=== PATIENT | male | born 1930 | race Caucasian/White ===

== ENCOUNTER 2017-01-07 15:02 | Observation (INO) | payer MEDICARE ==
[2017-01-07 16:39] LABS: Hematocrit 40 % (42-52); Hemoglobin 13.3 g/dl (14.0-18.0); Mean Corpuscular HGB Conc 33 g/dl (31-36); Mean Corpuscular Hemoglobin 32 pg (27-31); Mean Corpuscular Volume 95 fL (80-94); Mean Platelet Volume 8 um3 (7.4-10.4); Red Blood Count 4.19 10^6/ul (4.0-5.4); Red Cell Distribution Width 13 % (10.5-15); White Blood Count 6.6 10^3/ul (3.5-10.8)
[2017-01-07 17:02] LABS: Albumin 3.9 g/dL (3.2-5.2); C Reactive Protein 3.66 mg/L (< 5.00); Calcium 9.1 mg/dL (8.6-10.3); EGFR African American 73.3 (>60); Globulin 3.4 g/dL (2-4); Magnesium 2.1 mg/dL (1.9-2.7); Potassium 3.6 mmol/L (3.5-5.0); Total Bilirubin 0.6 mg/dL (0.2-1.0); Total Protein 7.3 g/dL (6.4-8.9)
[2017-01-07 17:04] LABS: Troponin I 0.01 ng/mL (<0.04)
--- NOTE | 2017-01-07 17:08 | RAD ---
INDICATION: Back pain and weakness in an 86-year-old COMPARISON: None TECHNIQUE: Noncontrast axial source images was performed from the thoracolumbar junction to the sacrum. Coronal and and sagittal reformatted images were generated. FINDINGS: Vertebrae: There is no fracture or acute focal bony lesion. 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 Alignment: Lumbar spine straightening. Central Canal/Disc spaces: T12-L1 and L1-L2 are unremarkable. There is prominent sclerosis with disc space narrowing and vacuum disc phenomena at L2-L3. The degenerative changes in combination with circumferential bulging the disc leads to moderate to severe central canal stenosis. There is moderate bilateral foraminal narrowing. L3-L4 shows degenerative disc disease with mild canal and foraminal narrowing. L4-L5 shows degenerative disc disease with a mild decrease in side to side dimension of the canal and mild foraminal narrowing. L5-S1 shows advanced degenerative disc disease but no significant canal or foraminal compromise. Soft tissues: The paravertebral soft tissues are normal. 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
--- NOTE | 2017-01-07 17:12 | RAD ---
INDICATION: Weakness COMPARISON: Chest x-ray August 27, 2014; CT chest November 18, 2016 TECHNIQUE: An AP seated portable view obtained at 1701 hours is submitted. FINDINGS: Bones/Soft Tissues: There are no acute bony findings. Cardiomediastinal: The cardiomediastinal silhouette is normal. Lungs: There are no infiltrates. Pleura: There are no pleural effusions. There are left-sided pleural calcifications better identified on earlier CT imaging Other: None IMPRESSION: NO ACTIVE DISEASE.
[2017-01-07] MEDS: NS 0.9% 1000 ML* 1,000 ML IV SCH (17:15)
[2017-01-07 17:19] LABS: TSH (Thyroid Stimulating Horm) 8.97 mcIU/mL (0.34-5.60)
[2017-01-07 17:36] LABS: Urine Bilirubin Negative (Negative); Urine Glucose Negative (Negative); Urine Nitrite Negative (Negative)
--- NOTE | 2017-01-07 17:54 | RAD ---
INDICATION: Weakness COMPARISON: None TECHNIQUE: Noncontrast axial source images were acquired from the skull base to the vertex. FINDINGS: Ventricles/sulci: There is cortical atrophy with compensatory dilatation of the CSF spaces. Brain parenchyma: There is periventricular and subcortical white matter change compatible with chronic ischemia. Intracranial hemorrhage:None. Extra-axial spaces: There are no abnormal extra axial fluid collections or evidence of extra-axial mass. Calvarium: There is no calvarial fracture or other calvarial abnormality. Scalp: There is no evidence of scalp or extracalvarial soft tissue abnormality. Paranasal sinuses/mastoid: There is focal mucosal thickening involving the right maxillary antrum. There is a short air-fluid level left maxillary antrum. There is mild sphenoid sinusitis. Other: None. IMPRESSION: CORTICAL ATROPHY WITH CHRONIC MICROVASCULAR ISCHEMIC CHANGES. NO ACUTE FINDINGS. SINUSITIS.
--- NOTE | 2017-01-07 19:26 | ED ---
Deep Warren Billy, scribed for Tuan Mujica MD on 01/07/17 at 1736 . 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 He describes his condition as his legs "not working and feeling like jello." His symptoms have since resolved. He denies any dizziness, chest pain, SOB, leg pain, back pain, hematochezia, or changes to his arm strength. No similar prior episodes. He has been recovering from a recent head cold. No falls or traumas today. No significant chronic lower back pain. 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 Negative: Dizziness, Pain, GI Blood Loss, Chest Pain, Shortness of Breath - Additional Pertinent History Primary Care Physician: [id number] - Allergy/Home Medications Allergies/Adverse Reactions: Allergies Allergy/AdvReac Type Severity Reaction Status Date / Time Penicillins [PCN] Allergy Severe Hives Verified 01/07/17 15:03 Home Medications: Home Medications Cyanocobalamin TAB* [Vitamin B12 TAB*] 1,000 mcg PO DAILY 01/07/17 [History Confirmed 01/07/17] PMH/Surg Hx/FS Hx/Imm Hx Cardiovascular History: Reports: Hx Hypertension GI History: Reports: Hx Gastroesophageal Reflux Disease - ON DAILY MEDS Musculoskeletal History: Reports: Hx Arthritis - right knee Sensory History: Reports: Hx Contacts or Glasses - GLASSES, Hx Hearing Aid - LEFT EAR Opthamlomology History: Reports: Hx Contacts or Glasses - GLASSES - Cancer History Cancer Type, Location and 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 HERNIA REPAIRS [id number] BLADDER CANCER KELAYRESLEFT TOTAL KNEE Hx Anesthesia Reactions: No Infectious Disease History: No Infectious Disease History: Denies: Traveled Outside the [place] in Last 30 Days - Family History Family History: negative for malignant hyperthermia, negative for reaction to anesthesia - Social History Alcohol Use: Occasionally Alcohol Amount: 1-2 DRINKS/MONTH Substance Use Type: Reports: None Hx Tobacco Use: No Smoking Status (MU): Former Smoker Type: Cigarettes Amount Used/How Often: 4PPD 40+ YRS Have You Smoked in the Last Year: No Review of Systems Negative: Chest Pain Negative: Shortness Of Breath Positive: Weakness All Other Systems Reviewed And Are Negative: Yes Physical Exam Triage Information Reviewed: Yes Vital Signs On Initial Exam: Initial Vitals Temp Pulse Resp BP Pulse Ox 97.6 F 88 20 141/70 97 01/07/17 15:03 01/07/17 15:03 01/07/17 15:03 01/07/17 15:03 01/07/17 15:03 Vital Signs Reviewed: Yes Appearance: Positive: Well-Appearing, No Pain Distress Skin: Positive: Warm, Skin Color Reflects Adequate Perfusion, Dry Head/Face: Positive: Normal Head/Face Inspection Eyes: Positive: EOMI, DAXA ENT: Positive: Normal ENT inspection Neck: Positive: Supple, Nontender Respiratory/Lung Sounds: Positive: Clear to Auscultation, Breath Sounds Present Cardiovascular: Positive: RRR Abdomen Description: Positive: Nontender, Soft Bowel Sounds: Positive: Present Musculoskeletal: Positive: Strength/ROM Intact Neurological: Positive: Normal, Sensory/Motor Intact, Alert, Oriented to Person Place, Time Psychiatric: Positive: Normal, Affect/Mood Appropriate - Harshaw Coma Scale Coma Scale Total: 15 Diagnostics - Vital Signs Vital Signs Temp Pulse Resp BP Pulse Ox 01/07/17 17:01 82 94 01/07/17 17:00 130/84 01/07/17 16:00 83 122/78 92 01/07/17 15:54 91 124/82 92 01/07/17 15:48 87 92 01/07/17 15:03 97.6 F 88 20 141/70 97 - Laboratory Lab Results: Lab Results 01/07/17 01/07/17 01/07/17 Range/Units 16:30 16:30 16:30 WBC 6.6 (3.5-10.8) 10^3/ul RBC 4.19 (4.0-5.4) 10^6/ul Hgb 13.3 L (14.0-18.0) g/dl Hct 40 L (42-52) % MCV 95 H (80-94) fL MCH 32 H (27-31) pg MCHC 33 (31-36) g/dl RDW 13 (10.5-15) % Plt Count 171 (150-450) 10^3/ul MPV 8 (7.4-10.4) um3 Neut % (Auto) 54.1 (38-83) % Lymph % (Auto) 34.8 (25-47) % [place] % (Auto) 7.9 (1-9) % Eos % (Auto) 2.6 (0-6) % Baso % (Auto) 0.6 (0-2) % Absolute Neuts (auto) 3.6 (1.5-7.7) 10^3/ul Absolute Lymphs (auto) 2.3 (1.0-4.8) 10^3/ul Absolute Monos (auto) 0.5 (0-0.8) 10^3/ul Absolute Eos (auto) 0.2 (0-0.6) 10^3/ul Absolute Basos (auto) 0 (0-0.2) 10^3/ul Absolute Nucleated RBC 0.01 10^3/ul Nucleated RBC % 0.1 INR (Anticoag Therapy) 0.94 (0.89-1.11) APTT 26.8 (26.0-36.3) seconds Sodium 139 (133-145) mmol/L Potassium 3.6 (3.5-5.0) mmol/L Chloride 104 (101-111) mmol/L Carbon Dioxide 27 (22-32) mmol/L Anion Gap 8 (2-11) mmol/L BUN 29 H (6-24) mg/dL Creatinine 1.21 H (0.67-1.17) mg/dL Est GFR ( Amer) 73.3 (>60) Est GFR (Non-Af Amer) 57.0 (>60) BUN/Creatinine Ratio 24.0 H (8-20) Glucose 97 (70-100) mg/dL Lactic Acid (0.5-2.0) mmol/L Calcium 9.1 (8.6-10.3) mg/dL Magnesium 2.1 (1.9-2.7) mg/dL Total Bilirubin 0.60 (0.2-1.0) mg/dL AST 18 (13-39) U/L ALT 13 (7-52) U/L Alkaline Phosphatase 39 (34-104) U/L Total Creatine Kinase 75 (10-223) U/L CK-MB (CK-2) 2.7 (0.6-6.3) ng/mL Troponin I 0.01 (<0.04) ng/mL C-Reactive Protein 3.66 (< 5.00) mg/L Total Protein 7.3 (6.4-8.9) g/dL Albumin 3.9 (3.2-5.2) g/dL Globulin 3.4 (2-4) g/dL Albumin/Globulin Ratio 1.1 (1-3) Lipase 17 (11.0-82.0) U/L TSH 8.97 H (0.34-5.60) mcIU/mL 01/07/17 Range/Units 16:30 WBC (3.5-10.8) 10^3/ul RBC (4.0-5.4) 10^6/ul Hgb (14.0-18.0) g/dl Hct (42-52) % MCV (80-94) fL MCH (27-31) pg MCHC (31-36) g/dl RDW (10.5-15) % Plt Count (150-450) 10^3/ul MPV (7.4-10.4) um3 Neut % (Auto) (38-83) % Lymph % (Auto) (25-47) % [place] % (Auto) (1-9) % Eos % (Auto) (0-6) % Baso % (Auto) (0-2) % Absolute Neuts (auto) (1.5-7.7) 10^3/ul Absolute Lymphs (auto) (1.0-4.8) 10^3/ul Absolute Monos (auto) (0-0.8) 10^3/ul Absolute Eos (auto) (0-0.6) 10^3/ul Absolute Basos (auto) (0-0.2) 10^3/ul Absolute Nucleated RBC 10^3/ul Nucleated RBC % INR (Anticoag Therapy) (0.89-1.11) APTT (26.0-36.3) seconds Sodium (133-145) mmol/L Potassium (3.5-5.0) mmol/L Chloride (101-111) mmol/L Carbon Dioxide (22-32) mmol/L Anion Gap (2-11) mmol/L BUN (6-24) mg/dL Creatinine (0.67-1.17) mg/dL Est GFR ( Amer) (>60) Est GFR (Non-Af Amer) (>60) BUN/Creatinine Ratio (8-20) Glucose (70-100) mg/dL Lactic Acid 1.2 (0.5-2.0) mmol/L Calcium (8.6-10.3) mg/dL Magnesium (1.9-2.7) mg/dL Total Bilirubin (0.2-1.0) mg/dL AST (13-39) U/L ALT (7-52) U/L Alkaline Phosphatase (34-104) U/L Total Creatine Kinase (10-223) U/L CK-MB (CK-2) (0.6-6.3) ng/mL Troponin I (<0.04) ng/mL C-Reactive Protein (< 5.00) mg/L Total Protein (6.4-8.9) g/dL Albumin (3.2-5.2) g/dL Globulin (2-4) g/dL Albumin/Globulin Ratio (1-3) Lipase (11.0-82.0) U/L TSH (0.34-5.60) mcIU/mL Result Diagrams: 01/07/17 16:30 01/07/17 16:30 Lab Statement: Any lab studies that have been ordered have been reviewed, and results considered in the medical decision making process. 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 NO ACUTE FINDINGS. SINUSITIS. Course/Dx - Course Assessment/Plan: DR MAYERS, NEUROLOGY, SAW PATIENT IN ED. ADMIT HOSPITALIST STABLE. - Diagnoses Provider Diagnoses: Weakness - Physician Notifications Discussed Care of Patient With: 17:32 - spoke with Dr. Mayers (neurologist). Indicated that patient will require MRI with and without contrast. Discharge - Discharge Plan Condition: Stable Disposition: [facility] Referrals: Deja West MD [Primary Care Provider] - The documentation as recorded by the [email or web address] isbell Billy accurately reflects the service I personally performed and the decisions made by me, Tuan Mujica MD.
[2017-01-07 20:12] LABS: Free T4 0.69 ng/dL (0.61-1.12)
[2017-01-07 20:16] LABS: Total T3 1.09 ng/mL (0.87-1.78)
--- NOTE | 2017-01-07 20:19 | HP ---
H&P (Free Text) History and Physical: PCP: Karie West MD Date/Time of Evaluation: 01/07/20171944 CC: gait problem HPI: Mr Monzon is a highly functional 86YO male who reports awakening in his usual health this AM. He spent much of the morning and early afternoon cooking for his family. He decided to take a break around 1600 by lying on his stomach and reading. About 1630 he received a phone call from a friend. 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 He had to hold onto his dresser and bed to keep from falling. His friend's is a retired nurse and advised him to come to the ED for evaluation. Mr Monzon denies focal numbness/tingling, change in speech/ vision/swallow, loss of bowel/bladder, chest pain, F/C/D, or other issues. He is recovering from an upper respiratory infection present for the past week manifested mainly by productive cough and rhinorrhoea. ED evaluation reveals stable vitals and reasonably normal lab values. Radiologic work up reveals CT L-spine WO showing mod-severe L2-[address] Riana MD neurology consulted in the ED and recommends observation for MRI C/T/L spine & further lab work up. PMedHx HTN HLD GERD restless leg syndrome Allergies Penicillins [PCN] Allergy (Severe, Verified 01/07/17 15:03) Hives Ambulatory Orders Pantoprazole TAB (NF) [Protonix TAB (NF)] 40 mg PO DAILY 05/08/13 Simvastatin TAB(NF) [Zocor(NF)] 20 mg PO BEDTIME 05/08/13 Ferrous Sulfate TAB* 325 mg PO BID 05/18/15 Ibuprofen TAB* [Advil TAB*] 400 mg PO Q6H PRN 05/18/15 Lisinopril/HCTZ 20/12.5(NF) [Zestoretic 20/12.5(NF)] 0.5 tab PO DAILY 05/18/15 rOPINIRole TAB* [Requip TAB*] 1 - 2 tab PO BEDTIME 05/18/15 Ketoconazole 2 % CREAM (NF) [Nizoral 2% CREAM (NF)] 1 applic TOPICAL BID Lidocaine 5% OINT* [Xylocaine 5% Oint*] 1 applic TOPICAL BEDTIME 10/03/16 Cyanocobalamin TAB* [Vitamin B12 TAB*] 1,000 mcg PO DAILY 01/07/17 PSurgHx B TKA SocHx: former smoker having quit >25years ago with >50PYHX, minimal alcohol, no recreational drugs; , lives alone; full code status FamHx: Mother & Father passed at a younger age than he is, but he is uncertain as to their medical conditions. ROS: as above, otherwise reviewed and all were negative Constitutional: NAD, normally developed, well-nourished elderly white male vitals: Vital Signs Temp 36.4 C 01/07/17 15:03 Pulse 84 01/07/17 18:30 Resp 20 01/07/17 15:03 BP 105/61 01/07/17 18:30 Pulse Ox 96 01/07/17 18:30 Intake & Output 01/06/17 01/07/17 01/07/17 23:59 11:59 23:59 Weight 80.739 kg HEENM: atraumatic; sclera/conjunctiva: non-icteric/clear; hearing: [place] hearing aides w/ mild to moderate difficulty; oropharynx: clear, mucosa moist Neck: soft tissue: non-tender; thyroid: normal Pulmonary: clear to auscultation bilaterally, good aeration, no accessory muscle use CV: RR/RR, normal S1S2, no carotid bruit, no jugular venous distention, 2+ B DP/ PT, no edema Abdominal: soft, non-distended, non-tender, no rebound/guarding/rigidity, normoactive bowel sounds, no hepatosplenomegaly or masses, no costovertebral angle tenderness Musculoskeletal: general: grossly intact; gait: unsteady Integumental: normal appearance and texture for age of exposed skin Neurological motor LLE: 4/5 proximally & distally RLE: 4/5 proximally & distally sensory crude touch: intact BLE proprioception: intact BLE Otherwise exam deferred to neurology. Psychiatric orientation: AA&O to PPS affect: calm mood: pleasant eye contact: good content: reliable responses: timely insight: good Testing: Lab Results 01/07/17 01/07/17 01/07/17 Range/Units 16:30 16:30 16:30 WBC 6.6 (3.5-10.8) 10^3/ul RBC 4.19 (4.0-5.4) 10^6/ul Hgb 13.3 L (14.0-18.0) g/dl Hct 40 L (42-52) % MCV 95 H (80-94) fL MCH 32 H (27-31) pg MCHC 33 (31-36) g/dl RDW 13 (10.5-15) % Plt Count 171 (150-450) 10^3/ul MPV 8 (7.4-10.4) um3 Neut % (Auto) 54.1 (38-83) % Lymph % (Auto) 34.8 (25-47) % [place] % (Auto) 7.9 (1-9) % Eos % (Auto) 2.6 (0-6) % Baso % (Auto) 0.6 (0-2) % Absolute Neuts (auto) 3.6 (1.5-7.7) 10^3/ul Absolute Lymphs (auto) 2.3 (1.0-4.8) 10^3/ul Absolute Monos (auto) 0.5 (0-0.8) 10^3/ul Absolute Eos (auto) 0.2 (0-0.6) 10^3/ul Absolute Basos (auto) 0 (0-0.2) 10^3/ul Absolute Nucleated RBC 0.01 10^3/ul Nucleated RBC % 0.1 INR (Anticoag Therapy) 0.94 (0.89-1.11) APTT 26.8 (26.0-36.3) seconds Sodium 139 (133-145) mmol/L Potassium 3.6 (3.5-5.0) mmol/L Chloride 104 (101-111) mmol/L Carbon Dioxide 27 (22-32) mmol/L Anion Gap 8 (2-11) mmol/L BUN 29 H (6-24) mg/dL Creatinine 1.21 H (0.67-1.17) mg/dL Est GFR ( Amer) 73.3 (>60) Est GFR (Non-Af Amer) 57.0 (>60) BUN/Creatinine Ratio 24.0 H (8-20) Glucose 97 (70-100) mg/dL Lactic Acid (0.5-2.0) mmol/L Calcium 9.1 (8.6-10.3) mg/dL Magnesium 2.1 (1.9-2.7) mg/dL Total Bilirubin 0.60 (0.2-1.0) mg/dL AST 18 (13-39) U/L ALT 13 (7-52) U/L Alkaline Phosphatase 39 (34-104) U/L Total Creatine Kinase 75 (10-223) U/L CK-MB (CK-2) 2.7 (0.6-6.3) ng/mL Troponin I 0.01 (<0.04) ng/mL C-Reactive Protein 3.66 (< 5.00) mg/L Total Protein 7.3 (6.4-8.9) g/dL Albumin 3.9 (3.2-5.2) g/dL Globulin 3.4 (2-4) g/dL Albumin/Globulin Ratio 1.1 (1-3) Lipase 17 (11.0-82.0) U/L Vitamin B12 509 (180-914) pg/mL Folate Pending TSH 8.97 H (0.34-5.60) mcIU/mL Free T4 0.69 (0.61-1.12) ng/dL Total T3 1.09 (0.87-1.78) ng/mL Urine Color Urine Appearance Urine pH (5-9) Ur Specific [place] (1.010-1.030) Urine Protein (Negative) Urine Ketones (Negative) Urine Blood (Negative) Urine Nitrate (Negative) Urine Bilirubin (Negative) Urine Urobilinogen (Negative) Ur Leukocyte Esterase (Negative) Urine Glucose (Negative) 01/07/17 01/07/17 Range/Units 16:30 17:20 WBC (3.5-10.8) 10^3/ul RBC (4.0-5.4) 10^6/ul Hgb (14.0-18.0) g/dl Hct (42-52) % MCV (80-94) fL MCH (27-31) pg MCHC (31-36) g/dl RDW (10.5-15) % Plt Count (150-450) 10^3/ul MPV (7.4-10.4) um3 Neut % (Auto) (38-83) % Lymph % (Auto) (25-47) % [place] % (Auto) (1-9) % Eos % (Auto) (0-6) % Baso % (Auto) (0-2) % Absolute Neuts (auto) (1.5-7.7) 10^3/ul Absolute Lymphs (auto) (1.0-4.8) 10^3/ul Absolute Monos (auto) (0-0.8) 10^3/ul Absolute Eos (auto) (0-0.6) 10^3/ul Absolute Basos (auto) (0-0.2) 10^3/ul Absolute Nucleated RBC 10^3/ul Nucleated RBC % INR (Anticoag Therapy) (0.89-1.11) APTT (26.0-36.3) seconds Sodium (133-145) mmol/L Potassium (3.5-5.0) mmol/L Chloride (101-111) mmol/L Carbon Dioxide (22-32) mmol/L Anion Gap (2-11) mmol/L BUN (6-24) mg/dL Creatinine (0.67-1.17) mg/dL Est GFR ( Amer) (>60) Est GFR (Non-Af Amer) (>60) BUN/Creatinine Ratio (8-20) Glucose (70-100) mg/dL Lactic Acid 1.2 (0.5-2.0) mmol/L Calcium (8.6-10.3) mg/dL Magnesium (1.9-2.7) mg/dL Total Bilirubin (0.2-1.0) mg/dL AST (13-39) U/L ALT (7-52) U/L Alkaline Phosphatase (34-104) U/L Total Creatine Kinase (10-223) U/L CK-MB (CK-2) (0.6-6.3) ng/mL Troponin I (<0.04) ng/mL C-Reactive Protein (< 5.00) mg/L Total Protein (6.4-8.9) g/dL Albumin (3.2-5.2) g/dL Globulin (2-4) g/dL Albumin/Globulin Ratio (1-3) Lipase (11.0-82.0) U/L Vitamin B12 (180-914) pg/mL Folate TSH (0.34-5.60) mcIU/mL Free T4 (0.61-1.12) ng/dL Total T3 (0.87-1.78) ng/mL Urine Color Yellow Urine Appearance Clear Urine pH 5.0 (5-9) Ur Specific [place] 1.026 (1.010-1.030) Urine Protein Negative (Negative) Urine Ketones Negative (Negative) Urine Blood Negative (Negative) Urine Nitrate Negative (Negative) Urine Bilirubin Negative (Negative) Urine Urobilinogen Negative (Negative) Ur Leukocyte Esterase Negative (Negative) Urine Glucose Negative (Negative) CXR, personally reviewed: IMPRESSION: NO ACTIVE DISEASE. CT brain WO, personally reviewed: IMPRESSION: CORTICAL ATROPHY WITH CHRONIC MICROVASCULAR ISCHEMIC CHANGES. NO ACUTE FINDINGS. SINUSITIS. 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 Impression: 86M presenting with acute gait instability DIAGNOSIS & PLAN Primary acute gait abnormality, concern for neurologic process : Sarbjit Mayers MD neurology consulted in ED, will follow, assistance appreciated : MRI C/T/L spine in AM : check B12, folate, TSH, syphilis IgG, total CK : supportive care Secondary HTN : continue lisinopril/HCTZ HLD : continue simvastatin GERD : continue pantoprazole restless leg syndrome : continue ropinirole Admission Rational: observation for acute gait abnormality, suspect neurologic process DVTp: heparin SQ Code Status: full HCP: sonTrevor
[2017-01-07 20:35] LABS: Folate 10.54 ng/mL (>3.99)
[2017-01-07] MEDS ORDERED: rOPINIRole TAB* 1 MG PO SCH (21:00)
[2017-01-07] MEDS ORDERED: Atorvastatin* 10 MG TAB PO SCH (21:00)
--- NOTE | 2017-01-07 21:50 | CONS ---
CC: Dr. Deja West NEUROLOGY CONSULT REPORT: DATE OF CONSULT: 01/07/17 REQUESTING PHYSICIAN: Dr. Mujica. PRIMARY CARE PHYSICIAN: Dr. Deja West. REASON FOR CONSULT: Sudden onset of bilateral leg weakness. HISTORY OF PRESENT ILLNESS: The patient is an 86-year-old right-handed male. He stated that he was cooking before noon and until late afternoon and there was a pot of water he put on the stove for boiling. He went back to read a few pages of his book until the water boiled. He lied down on his stomach in a prone position for probably 7 to 8 minutes and as his cell phone rang he tried to get up and go close to he window for a better cell phone signal. That is when he adolph his legs are weak and as he described it "felt like Jell-O." He he had to hold on to the furniture around him and eventually was able to get himself to the kitchen. He did not have any sensation of numbness in the lower extremities. He denied any other associated symptoms such as no dizziness, diplopia, dysarthria, or dysphagia. There is no report of incontinence. He did not have a history of similar episodes in the past. He called his son and taavimpt-fr-wuf who brought him to the ED for evaluation. He gradually felt better as he arrived in the ED. PAST MEDICAL HISTORY: Significant for: 1. Transitional cell cancer of the bladder. 2. History of distal vein thrombosis. 3. Restless legs syndrome. 4. GERD. 5. Hypertension. 6. Osteoarthritis. 7. Hyperlipidemia. 8. 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 PAST SURGICAL HISTORY: 1. Hemorrhoidectomy. 2. Bilateral knee replacement. 3. Colonoscopy. MEDICATIONS: Current medications at home, include: 1. Ropinirole 1 to 2 tablets at bedtime. 2. Zocor. 3. Protonix. 4. Lisinopril/hydrochlorothiazide. 5. Ferrous sulfate. 6. Vitamin B12 1000 mcg daily. ALLERGIES: To PENICILLIN. FAMILY HISTORY: Brother had history of gastric cancer. Mother had history of dementia. Father had history of [place], coronary artery disease. SOCIAL HISTORY: The patient currently lives alone. He is not smoking now, but has a history of smoking in the past. Has remote history of alcohol use. REVIEW OF SYSTEMS: Complete review of systems was performed and other than what mentioned above is negative. PHYSICAL EXAM: Blood pressure 105/61, respiratory rate 84, oxygen 96% on room air. The patient is awake, alert, and oriented x3. Pupils are symmetric and reactive to light. Extraocular movements are intact. Tongue is midline. Palate elevates upwards. Face is symmetric. V1 to V3 is intact to light touch and pinprick. Strength is 5/5 throughout. Sensation is intact to light touch, temperature and pinprick in the upper and lower extremities. Sensation to vibration is decreased in the lower extremities distal to the hips, left more than right, and also proprioception is impaired in the lower extremities, left more than right. Finger-to- nose is intact bilaterally with occasional subtle action tremor in the left side. Orru-cy-zqki is intact bilaterally. Deep tendon reflexes are 1+ in the upper extremities and are symmetric. In the lower extremities, no reflexes were elicited in the knees or the ankles bilaterally. Babinski sign is negative bilaterally. Gait is narrow based but unsteady as the patient walks; he is swaying. Romberg is somewhat positive as he closes his eyes, he has a bit of swaying. DIAGNOSTIC STUDIES/LAB DATA: INR 0.94. Sodium 139, potassium 3.6, BUN 29, creatinine 1.2. AST 18, ALT 13. TSH 8.97. Urine is negative. WBC 6.6, hemoglobin 13.3, hematocrit 40, platelets 179. He has also had Lyme disease serology in 2014 that was negative. Imaging: A lumbar spine CT shows advanced multilevel degenerative disk disease with multilevel canal stenosis, most severe at L2- L3. ASSESSMENT AND PLAN: The patient is an 86-year-old male with sudden onset of bilateral lower extremity, he described, as weakness and unsteady gait. On exam , currently the strength is full. However, the gait is unsteady with no clear ataxic signs from the [employer] as [id number] and [id number]-[id number] are intact. The physical exam is significant for loss of vibration and deep tendon reflexes and proprioception in the lower extremities. There is no sensory level or hyperreflexia. Anatomically, this localizes to the posterior column Considering the patient probably has a history of vitamin B12 deficiency this might be a chronic large fiber neuropathy and some degree of demyelination in the posterior column. However, considering that there has been a sudden change in his gait, I think he needs more attention towards obtaining an MRI of the spine to rule out pressure on the posterior column, especially that the CT scan of the spine showed canal stenosis, to ensure there is no posterior cord compression. The MRI should be done with and without contrast. Depending on the MRI results, he may need further tests such as lumbar puncture to determine if inflammatory process such as CIDP is ongoing. I have a less suspicion for AIDP as the patient's strengths are preserved at this point. I think he will be safer to be watched at least overnight to make sure that this lower extremity is not progressively getting worse or there is no fluctuation of his symptoms. We will try to obtain an MRI tomorrow based on the change of his clinical findings tomorrow. [id number]/[facility] #: [id number] RAMBO
[2017-01-08] MEDS: NS 0.9% 1000 ML* 1,000 ML IV SCH ×2 (00:40→08:53)
--- NOTE | 2017-01-08 03:02 | PN ---
Progress Note - Progress Note Note: MRIs of C/T/L spine W/WO approved for Monday by Dr Manjarrez.
[2017-01-08] MEDS ORDERED: Ibuprofen TAB* 400 MG PO PRN (07:35)
[2017-01-08 08:58] VITALS: BP 132/75
[2017-01-08] MEDS ORDERED: Ferrous Sulfate TAB* 325 MG PO SCH (09:00)
[2017-01-08] MEDS ORDERED: Cyanocobalamin TAB* 500 MCG PO SCH (09:00)
[2017-01-08] MEDS ORDERED: Lisinopril/HCTZ 20/12.5(NF) TAB PO SCH (09:00)
[2017-01-08] MEDS ORDERED: Omeprazole CAP* 20 MG PO SCH (09:00)
--- NOTE | 2017-01-08 10:35 | RAD ---
INDICATION: Neck and back pain COMPARISON: None TECHNIQUE: Coronal T2, sagittal T1, T2, inversion recovery, and axial T1 and T2-weighted images were acquired. FINDINGS: Craniocervical junction: The craniocervical junction is unremarkable. Cervical alignment cervical spine straightening. Cord: There are no intrinsic abnormalities. Vertebrae: There are no focal marrow signal abnormalities. Disc spaces: C2-C3: Normal C3-C4: Mild circumferential bulging of the disc with effacement of CSF anterior to the cord. Wide canal and foraminal patency C4-C5: Normal C5-C6: Minor disc space narrowing with mild broad-based circumferential bulging of the disc. Minor uncinate process spurring. Wide canal and foraminal patency. C6-C7: Moderate disc space narrowing with broad-based bulging the disc and posterior spondylitic ridge formation. Wide canal and foraminal patency C7-T1: Normal Soft tissues:The prevertebral soft tissues are normal. Other:None IMPRESSION: Minor multilevel degenerative change. Wide Canal and foraminal patency throughout..
--- NOTE | 2017-01-08 11:07 | RAD ---
INDICATION: Leg weakness. Spinal stenosis. COMPARISON: CT chest November 18, 2016 TECHNIQUE: Coronal T2, sagittal T1, T2, inversion recovery, and axial T1 and T2-weighted images were acquired. FINDINGS: Thoracic cord: No intrinsic abnormalities. Thoracic alignment: Mild levoscoliosis. Moderate kyphosis. Vertebrae: There are no focal marrow signal abnormalities. Disc spaces: There is minor mid to lower thoracic spine degenerative disc disease with circumferential bulging and disc space narrowing at T9-T10 and T10-T11. There is white canal and foraminal patency throughout. Soft tissues:There is no paravertebral abnormality. 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 No intrinsic abnormalities of cord or significant canal compromise.
--- NOTE | 2017-01-08 11:07 | RAD ---
INDICATION: Back pain. Leg weakness. Abnormal gait. Severe spinal stenosis COMPARISON: CT lumbar spine January 07, 2017 TECHNIQUE: Coronal T2, sagittal T1, T2, inversion recovery, and axial T1 and T2-weighted images were acquired. FINDINGS: Conus medullaris: Normal in size and position . Lumbar alignment: Normal. Vertebrae: There are marrow signal abnormalities corresponding to advanced degenerative change with vertebral sclerosis and osteophytosis at L2-L5. These bony changes are better appreciated on the concurrent CT of the lumbar spine. Disc spaces: T12-L1: Normal L1-L2: Mild desiccation of the disc. The height of the disc is maintained. There is minor bulging of the disc and there is minor facet overgrowth. The canal is widely patent. There is no impingement upon the exiting nerve roots. L2-L3: Extensive sclerotic change with vacuum disc phenomena and advanced disc space narrowing. SEVERE central canal stenosis as result of congenitally short pedicles and posterior disc osteophyte formation examination with ligamentous and facet overgrowth. Moderate bilateral foraminal encroachment. L3-L4: Indication the disc with minor disc space narrowing. Short pedicles in concert with bony overgrowth/facet hypertrophy produce SEVERE central canal stenosis. There is mild bilateral foraminal narrowing. L4-L5: Advanced degenerative disease with disc space narrowing. MODERATE TO SEVERE central canal stenosis as a function of short pedicles, posterior spondylitic ridge formation, and ligamentous and facet overgrowth. Mild left-sided foraminal narrowing. Moderate right-sided foraminal narrowing. L5-S1: Advanced degenerative disc disease with moderate narrowing. Prominent facet and ligamentous overgrowth. No significant canal compromise. Moderate bilateral foraminal narrowing. Soft tissues:There is no paravertebral abnormality. Other:None IMPRESSION: Advanced multilevel degenerative disc disease as described with severe canal stenosis at L2-L3 and L3-L4 and moderate to severe canal stenosis at L4-L5
--- NOTE | 2017-01-08 13:01 | PN ---
Progress Note - Progress Note SOAP: Neurology progress note Date of service: 01/08/17 Subjective: Patient had no acute events last night. Feeling better this morning. He has been ambulating this am and feels his gait is more steady now. MRI of the spine completed, although contrast could not be given due to low GFR. Objective: Vital Signs Temp Pulse Resp BP Pulse Ox 97.4 F 65 16 132/75 97 01/08/17 07:25 01/08/17 07:25 01/08/17 08:00 01/08/17 07:25 01/08/17 07:25 Laboratory Results - last 24 hr 01/07/17 01/07/17 01/07/17 16:30 16:30 16:30 WBC 6.6 RBC 4.19 Hgb 13.3 L Hct 40 L MCV 95 H MCH 32 H MCHC 33 RDW 13 Plt Count 171 MPV 8 Neut % (Auto) 54.1 Lymph % (Auto) 34.8 [place] % (Auto) 7.9 Eos % (Auto) 2.6 Baso % (Auto) 0.6 Absolute Neuts (auto) 3.6 Absolute Lymphs (auto) 2.3 Absolute Monos (auto) 0.5 Absolute Eos (auto) 0.2 Absolute Basos (auto) 0 Absolute Nucleated RBC 0.01 Nucleated RBC % 0.1 INR (Anticoag Therapy) 0.94 APTT 26.8 Sodium 139 Potassium 3.6 Chloride 104 Carbon Dioxide 27 Anion Gap 8 BUN 29 H Creatinine 1.21 H Est GFR ( Amer) 73.3 Est GFR (Non-Af Amer) 57.0 BUN/Creatinine Ratio 24.0 H Glucose 97 Lactic Acid Calcium 9.1 Magnesium 2.1 Total Bilirubin 0.60 AST 18 ALT 13 Alkaline Phosphatase 39 Total Creatine Kinase 75 CK-MB (CK-2) 2.7 Troponin I 0.01 C-Reactive Protein 3.66 Total Protein 7.3 Albumin 3.9 Globulin 3.4 Albumin/Globulin Ratio 1.1 Lipase 17 Vitamin B12 509 Folate 10.54 TSH 8.97 H Free T4 0.69 Total T3 1.09 Urine Color Urine Appearance Urine pH Ur Specific [place] Urine Protein Urine Ketones Urine Blood Urine Nitrate Urine Bilirubin Urine Urobilinogen Ur Leukocyte Esterase Urine Glucose 01/07/17 01/07/17 16:30 17:20 WBC RBC Hgb Hct MCV MCH MCHC RDW Plt Count MPV Neut % (Auto) Lymph % (Auto) [place] % (Auto) Eos % (Auto) Baso % (Auto) Absolute Neuts (auto) Absolute Lymphs (auto) Absolute Monos (auto) Absolute Eos (auto) Absolute Basos (auto) Absolute Nucleated RBC Nucleated RBC % INR (Anticoag Therapy) APTT Sodium Potassium Chloride Carbon Dioxide Anion Gap BUN Creatinine Est GFR ( Amer) Est GFR (Non-Af Amer) BUN/Creatinine Ratio Glucose Lactic Acid 1.2 Calcium Magnesium Total Bilirubin AST ALT Alkaline Phosphatase Total Creatine Kinase CK-MB (CK-2) Troponin I C-Reactive Protein Total Protein Albumin Globulin Albumin/Globulin Ratio Lipase Vitamin B12 Folate TSH Free T4 Total T3 Urine Color Yellow Urine Appearance Clear Urine pH 5.0 Ur Specific [place] 1.026 Urine Protein Negative Urine Ketones Negative Urine Blood Negative Urine Nitrate Negative Urine Bilirubin Negative Urine Urobilinogen Negative Ur Leukocyte Esterase Negative Urine Glucose Negative Current Medications Atorvastatin Calcium (Lipitor*) 10 mg PO BEDTIME [facility] Last Admin: 01/07/17 22:36 Dose: 10 mg Cyanocobalamin (Vitamin B12 Tab*) 1,000 mcg PO DAILY [facility] Last Admin: 01/08/17 08:52 Dose: 1,000 mcg Ferrous Sulfate (Ferrous Sulfate Tab*) 325 mg PO BID [facility] Last Admin: 01/08/17 08:52 Dose: 325 mg Lisinopril/HCTZ (Zestoretic 20/12.5(Nf)) 0.5 tab PO DAILY [facility] Last Admin: 01/08/17 08:49 Dose: Not Given Ibuprofen (Motrin Tab*) 400 mg PO Q6H PRN PRN Reason: PAIN Last Admin: 01/08/17 08:52 Dose: 400 mg Omeprazole (Prilosec Cap*) 20 mg PO DAILY [facility] Last Admin: 01/08/17 08:52 Dose: 20 mg Ropinirole HCl (Requip Tab*) 2 mg PO BEDTIME [facility] Last Admin: 01/07/17 22:36 Dose: 2 mg PHYSICAL EXAM: The patient is awake, alert, and oriented x3. Pupils are symmetric and reactive to light. Extraocular movements are intact. Tongue is midline. V1 to V3 is intact to light touch and pinprick. Strength is 5/5 throughout. Sensation is intact to light touch, temperature and pinprick in the upper and lower extremities. Sensation to vibration is decreased in the lower extremities, distal to the hips, and is more pronounced in the left than right. He also has decreased proprioception in the lower extremities, left more than right. Finger-to- nose is intact bilaterally, no tremor noted today. Deep tendon reflexes are 1+ in the upper extremities and are symmetric. In the lower extremities, no reflexes were elicited in the knees or the ankles bilaterally. Gait is narrow based and steady, improved compared to last night. MRI L-spine: Advanced multilevel degenerative disc disease as described with severe canal stenosis at L2-L3 and L3-L4 and moderate to severe canal stenosis at L4-L5 MRI T-Spine: Minor arthritic change. No intrinsic abnormalities of cord or significant canal compromise. MRI C-spine: Minor multilevel degenerative change. Wide Canal and foraminal patency throughout. Assessment and Plan: 86 year-old male presented to the hospital last night with worsening of his gait and as he describes it weakness of the lower extremities. On exam, strength was 5/5 ,but there was decreased sensation to vibration and proprioception in the lower extremities + absence of knee and patellar reflexes. MRI of the spine shows severe canal stenosis in the lumbar region, with probably the disc protrusion touching the spine, but there is no clear signal increase in the spine in MRI. His neurological exam is improved today. There is no sensory level, or any effect on the continence of the bowel and bladder. He probably has some underlying large fiber neuropathy + posterior column due to Vitamin B12 deficiency (he is on supplements now and his level is >500 today)> At this point, I do not see a need for any further workup. Patient seems stable enough to be discharged home. He can have a PT evaluation preferably while he is in the hospital . He can have an elective consult as outpatient with neurosurgery as well for his lumbar canal stenosis. I discussed with the patient to avoid positions that puts pressure on his spine (as he did last night when he was lying in a prone position with the head and shoulder extending up to read a book). Recommended to sleep on his back at night with a short/small pillow below the knees to provide a mild extension of the knees. He should be cautious about activities with frequent bending and lifting such as gardening which he says he loves to do.. Time at beside 30 minutes to discuss the results and recommendations as above.
--- NOTE | 2017-01-08 21:54 | DS ---
DISCHARGE SUMMARY: DATE OF ADMISSION: 01/07/17 DATE OF DISCHARGE: 01/08/17 PRIMARY CARE PROVIDER: Dr. West. CONSULTING NEUROLOGIST: Dr. Daniel Mayers. DISCHARGE DIAGNOSIS: Gait abnormality secondary to severe spinal canal stenosis in the lumbar region. SECONDARY DIAGNOSES: 1. Hypertension. 2. Hyperlipidemia. 3. Gastroesophageal reflux disease. 4. Restless leg syndrome. 5. Chronic kidney disease stage 3. MEDICATIONS: 1. Vitamin B12 1000 mcg p.o. daily. 2. Ferrous sulfate 325 mg p.o. b.i.d. 3. Ibuprofen 400 mg p.o. q.6 hours p.r.n. pain. 4. Ketoconazole 2% cream to the affected areas topical b.i.d. 5. Lidocaine 5% ointment to affected areas topical at bedtime. 6. Lisinopril/hydrochlorothiazide 20/12.5 half a tablet p.o. daily. 7. Pantoprazole 40 mg p.o. daily. 8. Ropinirole 1 mg 1 to 2 tablets p.o. at bedtime. 9. Simvastatin 20 mg p.o. at bedtime. HOSPITAL COURSE: Mr. Monzon is an 86-year-old male with a past medical history as stated above that presented to the emergency room on 01/07/17 with complaints of gait problems. He was lying on his stomach and reading a book and about 30 minutes later, he received a phone call and when he tried to stand up and walk, he felt his legs were "like Jell-O." For more details about his presentation, I refer you to his history and physical. He was seen in consultation by Neurology (Dr. Mayers) and his impression was the patient presented with sudden onset of bilateral lower extremity weakness and unsteady gait. He felt that with the patient's history of vitamin B12 deficiency, he may have a chronic large fiber neuropathy and some degree demyelination in posterior column. However, considering that there has been a sudden change in his gait, his recommendation was for an MRI of the spine to rule out pressure in the posterior column. Especially, the CT scan of the spine showed canal stenosis. The patient was admitted as observation for further workup. A CT of the brain without contrast done in the emergency room showed cortical atrophy with chronic microvascular ischemic changes, but no acute findings. Chest x-ray showed no active disease and a CT of the lumbar spine showed advanced multilevel degenerative disk disease with multilevel canal stenosis most severe at L2-L3. The patient underwent spine MRI of the cervical, thoracic, and lumbar spine. The cervical spine showed minor multilevel degenerative change. Thoracic spine showed minor arthritic changes, no intrinsic abnormalities of cord or significant canal compromise and lumbar spine showed advanced multilevel degenerative disk disease with severe canal stenosis at L2-L3, L3-L4 and moderate to severe canal stenosis at L4-L5. Due to his CKD stage 3 with a GFR of 57, Radiology recommended avoiding gadolinium. This was discussed with Neurology and Dr. Mayers felt that an MRI without contrast would be sufficient. Today, the patient had resolution of his symptoms and felt that his gait was back to its baseline. He was seen in followup by Neurology and after reviewing the MRI, he felt that the MRI of the spine shows severe canal stenosis in the lumbar region with probably the disk protrusion touching the spine, but no clear signal increase in the spine in MRI. His neurological exam is improved today. There is no sensory level or any effect on the continence of the bowel and bladder. He probably has some underlying large fiber neuropathy plus posterior column due to vitamin B12 deficiency which he is on supplements now and his level was greater than 500 today. At this point, he did not feel that the patient needed any further workup. The patient can have an elective consult as an outpatient with Neurosurgery for his lumbar canal stenosis. The impression is that the strain on his lumbar spine yesterday from his position of lying on his belly is probably what caused his weakness. The patient received education to avoid position that put pressure on his spine as he had done yesterday. He is recommended to sleep on his back at night. He should also be cautious about activities with frequent bending and lifting such as gardening. He was seen in consultation by Physical Therapy. The physical therapist also educated the patient on no further prone lying as he places back into extension and putting pressure on nerve roots. He was educated about flexion exercises and alternate positions that he can think of to lay down to read his books. It was felt that he would not need outpatient physical therapy at this point. Incidentally, the patient was found to have a TSH of 8.9, but with normal free T4 and total T3. He would probably benefit of having another set of thyroid function tests checked in 4 to 6 weeks. The patient is medically stable to be discharged home today to follow up with Dr. West as an outpatient. PHYSICAL EXAMINATION: Vital Signs: Temperature 97.4, heart rate is 65, respiratory rate 16, oxygen saturation 97% on room air, blood pressure 132/75. General: The patient is a pleasant elderly male sitting up in a chair in no acute distress. CVS: Normal S1, S2. Regular rate and rhythm. Chest: Breath sounds present bilaterally with no added sounds. Extremities: No edema. Neuro : He is alert, awake, and oriented x3. Power is 5/5 in all 4 extremities. He is hard of hearing. DIET: Heart healthy diet. ACTIVITIES: As tolerated. DISPOSITION: To home. STATUS IN THE HOSPITAL: Observation. Please keep in mind this is a summarized version of this patient's hospital stay. If you need more information, please feel free to call me at [phone] or please obtain the full medical records. The patient and his [id number] received education about his diagnosis and what symptoms should prompt his return to the emergency room. TIME SPENT: Approximately 45 minutes were spent to complete this discharge. CC: Dr. West; Dr. Daniel Mayers * [id number]/[facility] #: [id number] [facility]
[2017-01-09 10:25] LABS: Syphilis Index < 0.1 Index
== END 2017-01-08 15:25 | disposition home or self-care (01) ==
LOC: ED 15:02 → MED 19:49
PROVIDERS: ADMIT Hospitalist; ATTEND Internal Medicine
DX: R26.9 Unspecified abnormalities of gait and mobility (principal); M48.06 Spinal stenosis, lumbar region; E78.5 Hyperlipidemia, unspecified; K21.9 Gastro-esophageal reflux disease without esophagitis; G25.81 Restless legs syndrome; I12.9 Hypertensive chronic kidney disease with stage 1 through stage 4 chronic kidney disease, or unspecified chronic kidney disease; N18.3 Chronic kidney disease, stage 3 (moderate); Z88.0 Allergy status to penicillin; R53.1 Weakness; Z85.51 Personal history of malignant neoplasm of bladder; Z23 Encounter for immunization
CPT/HCPCS: 36415; 70450; 71010; 72131; 72141; 72146; 72148; 80053; 81003; 82550; 82553; 82607; 82746; 83605; 83690; 83735; 84439; 84443; 84479; 84484; 85025; 85610; 85730; 86140; 86592; 99284; A9270-GY; G0378; G8978-GP-CI; G8979-GP-CH; G8980-GP-CI

== ENCOUNTER 2017-12-04 08:39 | Day surgery (SDC) | payer MEDICARE ==
--- NOTE | 2017-11-30 19:58 | HP ---
PREOPERATIVE HISTORY AND PHYSICAL: DATE OF ADMISSION: 12/04/17 PROVIDER: Dr. Roberto Garcia.* (DICTATED BY TWILA ZEPEDA) CHIEF COMPLAINT: Right foot pain. HISTORY OF PRESENT ILLNESS: Mr. 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 He has persistent pain with any ambulation and severe difficulty with wearing shoes comfortably. He has used a carbon insert which he felt was not very helpful. He also has some pain in the toe, which wakes him at night. Some days it is severe, some days it is not particularly noticeable. He feels as though it is an average of 7/10. He is interested in surgical intervention for correction of the problem at this point. PAST MEDICAL HISTORY: Hypertension, osteoarthritis, transitional cell carcinoma of the bladder, hyperlipidemia, history of PE and DVT, and hypothyroidism. PAST SURGICAL HISTORY: Bilateral total knee arthroplasties, bilateral inguinal hernia repairs, cystoscopy with bladder tumor resection. He reports no complications with anesthesia with these procedures. CURRENT MEDICATIONS: 1. Levothyroxine sodium 75 mcg 1 p.o. q. day. 2. Xarelto 15 mg 1 p.o. q. day. 3. Trazodone 50 mg one-half to 1 tab p.o. q.h.s. p.r.n. He reports not taking this very much recently. 4. Vitamin B12 1000 mcg p.o. q. day. 5. Ketoconazole 2% cream applied to scalp 3 times per week. 6. Lidocaine 5% gel applied as needed. 7. Lisinopril/hydrochlorothiazide 20/12.5 mg half tab p.o. q. day. 8. Ropinirole HCl 1 mg 1 to 2 tabs p.o. q.h.s. 9. Pantoprazole sodium 40 mg 1 p.o. q. day. 10. Simvastatin 20 mg 1 p.o. q. day. ALLERGIES: PENICILLIN causes severe hives. FAMILY HISTORY: Noncontributory. SOCIAL HISTORY: He is retired. He lives with his son. He is a former smoker. He quit smoking 25 years ago; however, he smoked for approximately 40 years prior to that. He drinks 2 to 4 alcoholic beverages daily. He does not exercise regularly. REVIEW OF SYSTEMS: Constitutional: Negative for recent hospitalizations, fevers, chills, night sweats, or unexplained weight loss. Head: Negative for headaches, lightheadedness, or balance problems. Cardiovascular: Negative for chest or arm pain with exertion, history of heart attack, heart murmur, heart palpitations. Positive for high blood pressure, positive for embolism, and deep vein thrombosis. Respiratory: Negative for chronic cough, shortness of breath or exertion, asthma or COPD. Gastrointestinal: Positive for heartburn. Negative for nausea, vomiting, diarrhea. Positive for GERD. Genitourinary: Negative for nighttime urination, frequency of urination, urinary tract infections, or kidney problems. Musculoskeletal: Negative for chronic back pain or recent fractures. Skin: Negative for rashes, lesions, lumps, or sores. Neurologic: Negative for seizure, stroke, epilepsy, depression, or anxiety. Endocrine: Positive for hypothyroidism, negative for diabetes. Hematology: Negative for easy bleeding, bruising, or anemia. PHYSICAL EXAMINATION GENERAL: He is a well-developed, well-nourished, pleasant male in no acute distress at rest. He is alert and oriented x3 with appropriate mood and affect. VITAL SIGNS: The patient is 5 feet 5 inches, 178 pounds, blood pressure 142/90 , pulse 62, respirations 18. HEENT: Normocephalic, atraumatic. His hearing and vision are grossly intact. NECK: Trachea is midline. RESPIRATORY: Lungs clear to auscultation bilaterally. No wheezes, rales, or rhonchi. CARDIOVASCULAR: Regular rate and rhythm. No murmurs, rubs, or gallops. Normal S1, S2. ABDOMEN: Soft, nondistended, nontender. Normal bowel sounds. EXTREMITIES: The right lower extremity, skin is intact without abrasions or open wounds. There is no edema or ecchymosis. He has markedly restricted range of motion of the first MTP joint with significant hallux valgus deformity. He has full hindfoot range of motion with 5/5 strength. Sensation to light touch is intact. He has a 2+ dorsalis pedis pulse. IMPRESSION: Right foot hallux rigidus. PLAN: The patient is to undergo right first metatarsophalangeal joint fusion by Dr. Garcia on 12/04/17. The risks, benefits, and postoperative course were discussed with the patient and his son at length and they are willing to proceed. A prescription for oxycodone was sent to his pharmacy for postoperative pain. All of his questions were answered to his full satisfaction. He is understanding to call should he develop any problems or concerns. TWILA ZEPEDA [id number]/[facility] #: [id number] [place]
[~2017-12-04 08:39] MED LIST: Buffered Lidocaine 0.9% SYRIN* 5 ML/SYR SYRINGE INTRADERM ONE; DiMENhydriNATE IV* 50 MG/ML VIAL IV PUSH PRN; Famotidine IV* 10 MG/ML 2 ML (20 mg) IV ONE; Morphine INJ* 2 MG/ML 1 ML CARPUJECT IV PRN; Naloxone* 0.4 MG/ML 1 ML VIAL IV PRN
[2017-12-04] MEDS ORDERED: Clindamycin 900 MG IVPREMIX(* 900 MG/50 ML SDV IV ONE (08:49)
[2017-12-04] MEDS ORDERED: Famotidine IV* 10 MG/ML 2 ML (20 mg) ONE (08:49)
[2017-12-04] MEDS ORDERED: fentaNYL* 50 MCG/ML 2 ML VIAL (100 MCG VIAL) ONE ×2 (09:47→12:53)
[2017-12-04] MEDS ORDERED: Midazolam* 1 MG/ML 2 ML VIAL (2 MG) ONE (09:48)
[2017-12-04] MEDS ORDERED: KETAMINE HCL* 50 MG/ML 10 ML VIAL ONE (09:48)
[2017-12-04] MEDS ORDERED: Bupivacaine 0.5% SDV PF* 10-30ML VIAL ONE (10:37)
[2017-12-04] MEDS ORDERED: Lidocaine 2% PF* 10 ML AMP ONE (10:37)
[2017-12-04] MEDS ORDERED: Ondansetron INJ* 2 MG/ML VIAL ONE (11:36)
[2017-12-04] MEDS ORDERED: Lidocaine 2% PF * 5 ML VIAL ONE (11:36)
[2017-12-04] MEDS ORDERED: Dexamethasone IV* 4 MG/ML 1 ML (4 MG) ONE (11:36)
[2017-12-04] MEDS ORDERED: Propofol* 10 MG/ML 20 ML BTL IV PUSH ONE (11:36)
[2017-12-04] MEDS ORDERED: Ketorolac INJ* 30 MG/ML 1 ML VIAL ONE (11:37)
[2017-12-04] MEDS ORDERED: oxyCODONE/Acetamin 5/325 MG* TAB ONE (12:53)
[2017-12-04] MEDS: oxyCODONE/Acetamin 5/325 MG* TAB PO PRN ×2 (12:54→12:55)
[2017-12-04] MEDS: fentaNYL* 50 MCG/ML 2 ML VIAL (100 MCG VIAL) IV PRN ×3 (12:56→13:10)
[2017-12-04 13:40] VITALS: BP 183/98
--- NOTE | 2017-12-05 11:23 | OP ---
DATE OF OPERATION: 12/04/17 - [facility] DATE OF : 32 SURGEON: Roberto Garcia MD CHURN OPERATOR MARGARINE: Ayana Peacock PA-C ANESTHESIOLOGIST: Claudio Mcknight MD ANESTHESIA: Monitored Anesthesia Care. PRE-OP DIAGNOSIS: Right hallux rigidus arthrosis. POST-OP DIAGNOSIS: Right hallux rigidus arthrosis. OPERATIVE PROCEDURE: Right 1st MTP joint fusion. DESCRIPTION OF PROCEDURE: The patient was taken to the operating room where a longitudinal incision was made over the 1st MTP joint. Medial lateral flap was raised to have visualization of the joint, which was prepared for arthrodesis using a small power sara. We pinned the joint in a neutral position using crossed 4-0 cannulated screws and then a fixed a F3 plate, which was a Y-shaped rigid plate over the dorsum of the joint using combination of locking and nonlocking screws. X-rays intraoperatively showed satisfactory position of the hardware and the fusion. We then irrigated thoroughly, closing with 3-0 Vicryl , 4-0 nylon and a compression dressing applied. [id number]/[facility] #: [id number] [facility]ITALRomina
== END 2017-12-04 13:50 | disposition home or self-care (01) ==
LOC: OR 08:39
PROVIDERS: ATTEND Orthopaedic Surgery
DX: M20.21 Hallux rigidus, right foot (principal); I10 Essential (primary) hypertension; E78.5 Hyperlipidemia, unspecified; Z86.711 Personal history of pulmonary embolism; Z79.01 Long term (current) use of anticoagulants; Z86.718 Personal history of other venous thrombosis and embolism; Z87.891 Personal history of nicotine dependence; E03.9 Hypothyroidism, unspecified; M19.90 Unspecified osteoarthritis, unspecified site
CPT/HCPCS: A9270-GY; C1713; C1776; J1100; J1885; J2001; J2250; J2405; J2704; J3010

== ENCOUNTER 2018-02-21 09:35 | Day surgery (SDC) | payer MEDICARE ==
[~2018-02-21 09:35] MED LIST changes: +Cyclopentolate 1% OPTH.SOL* 2 ML BTL ONE; -DiMENhydriNATE IV* 50 MG/ML VIAL IV PUSH PRN; -Famotidine IV* 10 MG/ML 2 ML (20 mg) IV ONE; +Ketorolac 0.5% OPHTH (NF) 0.5 % 5 ML BTL ONE; +Lidocaine 1% MPF* 2 ML VIAL ONE; +Lidocaine 2% EPI 1:200000 MPF*10-20 ML VIAL ONE; -Morphine INJ* 2 MG/ML 1 ML CARPUJECT IV PRN; -Naloxone* 0.4 MG/ML 1 ML VIAL IV PRN; +Neomycin/Polymy/Dex OPTH.SUSP* MAXITROL 0.1% 5 ML ONE; +Phenylephrine 2.5% OPTH.SOL* 2 ML BTL ONE; +Povidone Iodine 5% OPTH* 30 ML BTL ONE; +Proparacaine 0.5% OPHTH.SOL* 15 ML BTL ONE; +acetaZOLAMIDE TAB* 250 MG ONE
[2018-02-21] MEDS ORDERED: Lidocaine 2% PF * 5 ML VIAL ONE (12:03)
[2018-02-21] MEDS ORDERED: Propofol* 10 MG/ML 20 ML BTL IV PUSH ONE (12:03)
[2018-02-21 12:38] VITALS: BP 99/56
--- NOTE | 2018-02-21 13:34 | OP ---
OPERATIVE NOTE: DATE OF OPERATION: 02/21/18 DATE OF : 32 SURGEON: Zuhair Alvarenga M.D. PREOPERATIVE DIAGNOSIS: Cataract, left eye. POSTOPERATIVE DIAGNOSIS: Cataract, left eye. OPERATIVE PROCEDURE: Extracapsular cataract extraction with intraocular lens implant with IOL, left eye. PROCEDURE: The patient was brought to the operating room after being given 1/2% Alcaine with epineph rine drops in the preoperative area. The eye was prepped and draped in the usual sterile fashion. S terile drape and eyelid speculum were placed. Again, topical 1/2% Alcaine with epinephrine was given . A paracentesis incision was made at the 3 o'clock position with the No.75 blade. Clear cornea inc ision 2.2 x 2.2-mm was created at the 6 o'clock position starting at the anterior limbus using the 2. 2-mm keratome. The anterior chamber was irrigated with 0.4 mL of 1% non-preservative intracameral li docaine and filled with DisCoVisc. A capsulorrhexis was completed using the cystotome and the Utrata forceps. Hydrodissection was performed with balanced salt solution. The lens nucleus was removed wi th the Phacoemulsification handpiece without incident. Cortex was removed with the irrigation-aspira tion handpiece. The capsular bag was re-inflated using DisCoVisc and an SN60WF 22.5 implant was inse rted with the shooter. The irrigation-aspiration handpiece was used to remove all residual DisCoVisc . The eye was refilled with balanced salt solution and the wound checked and found to be watertight. Topical Maxitrol drops were given. [id number]/[facility] #: [id number]
== END 2018-02-21 12:37 | disposition home or self-care (01) ==
LOC: OREAST 09:35
PROVIDERS: ATTEND Specialist
DX: H25.812 Combined forms of age-related cataract, left eye (principal); H43.813 Vitreous degeneration, bilateral; Z87.891 Personal history of nicotine dependence; Z86.711 Personal history of pulmonary embolism; Z79.01 Long term (current) use of anticoagulants; Z86.718 Personal history of other venous thrombosis and embolism; I10 Essential (primary) hypertension; E78.5 Hyperlipidemia, unspecified; Z85.51 Personal history of malignant neoplasm of bladder
CPT/HCPCS: A9270-GY; J2704; V2632

== ENCOUNTER 2018-02-28 12:31 | Day surgery (SDC) | payer MEDICARE ==
[~2018-02-28 12:31] MED LIST changes: +Acetaminophen TAB* 325 MG PO PRN; -Lidocaine 1% MPF* 2 ML VIAL ONE
[2018-02-28] MEDS ORDERED: Midazolam* 1 MG/ML 2 ML VIAL (2 MG) ONE ×2 (14:20→14:34)
[2018-02-28 15:06] VITALS: BP 141/82
--- NOTE | 2018-02-28 15:54 | OP ---
DATE OF OPERATION: 02/28/2018 - [facility] DATE OF : 1930. SURGEON: Zuhair Alvarenga M.D. PREOPERATIVE DIAGNOSIS: Cataract right eye. POSTOPERATIVE DIAGNOSIS: Cataract right eye. OPERATIVE PROCEDURE: Extracapsular cataract extraction with intraocular lens implant right eye. DESCRIPTION OF PROCEDURE: The patient was brought to the operating room after being given 1/2% Alcaine with epinephrine drops in the preoperative area. The eye was prepped and draped in the usual sterile fashion. Sterile drape and eyelid speculum were placed. Again, topical 1/2% Alcaine with epinephrine was given. A paracentesis incision was made at the 9 o'clock position with the No.75 blade. Clear cornea incision 2.2 x 2.2-mm was created at the 12 o'clock position starting at the anterior limbus using the 2.2-mm keratome. The anterior chamber was irrigated with 0.4 mL of 1% non-preservative intracameral lidocaine and filled with DisCoVisc. A capsulorrhexis was completed using the cystotome and the Utrata forceps. Hydrodissection was performed with balanced salt solution. The lens nucleus was removed with the Phacoemulsification handpiece without incident. Cortex was removed with the irrigation-aspiration handpiece. The capsular bag was re-inflated using DisCoVisc and an [id number] 21 implant was inserted with the shooter. The irrigation-aspiration handpiece was used to remove all residual DisCoVisc. The eye was refilled with balanced salt solution and the wound checked and found to be watertight. Topical Maxitrol drops were given. [id number]/[facility] #: [id number] [facility] CENTERRomina
== END 2018-02-28 15:11 | disposition home or self-care (01) ==
LOC: OREAST 12:31
PROVIDERS: ATTEND Specialist
DX: H25.811 Combined forms of age-related cataract, right eye (principal); H43.813 Vitreous degeneration, bilateral; Z87.891 Personal history of nicotine dependence; E03.9 Hypothyroidism, unspecified; Z86.711 Personal history of pulmonary embolism; Z79.01 Long term (current) use of anticoagulants; Z86.718 Personal history of other venous thrombosis and embolism; I10 Essential (primary) hypertension
CPT/HCPCS: A9270-GY; J2250; V2632

== ENCOUNTER 2019-11-06 13:55 | Emergency (ER) | payer MEDICARE ==
--- NOTE | 2019-11-06 14:14 | ED ---
Lower Extremity - HPI Summary HPI Summary: The patient is an 89 y/o M presenting to [facility] accompanied by son with a chief complaint of pain and swelling in the left great toe onset this morning. He reports that he went to sleep last night and felt okay, but he woke up this morning with pain, swelling, erythema, and warmth to the left great toe into the foot. He notes tingling in the lower left leg. He denies arthralgia in any other joints, fevers or chills. Currently, his symptoms are rated 7/10 in severity as he is unable to bear weight. 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 No history of gout. PMHx: PE and DVT (currently on blood thinners ), thyroid disease, HTN, HLD, PVD, bladder cancer, bilateral knee replacements. Former smoker, daily EtOH, no substance use. Medications reviewed. Allergies noted. - History of Current Complaint Chief Complaint: EDExtremityLower Stated Complaint: L FOOT PAIN PER SON Time Seen by Provider: 11/06/19 14:03 Hx Obtained From: Patient Mechanism Of Injury: Unknown Onset/Duration: Still Present Severity Initially: Moderate Severity Currently: Severe Pain Intensity: 7 Pain Scale Used: 0-10 Numeric Timing: Constant Location: Is Discrete @ - left great toe Character Of Pain: Aching Associated Signs And Symptoms: Positive: Swelling, Redness, Other - tingling in lower left leg, warmth of left great toe; Negative: chills. Negative: Fever Aggravating Factor(s): Ambulation, Movement Alleviating Factor(s): Rest Able to Bear Weight: No - secondary to pain - Risk Factors Gout Risk Factors: Age Over 40, Male, Hypertension, Hyperlipidemia, Peripherial Vascular Disease DVT Risk Factors: Prior DVT, Prior PE - Allergies/Home Medications Allergies/Adverse Reactions: Allergies Allergy/AdvReac Type Severity Reaction Status Date / Time Penicillins Allergy Hives Verified 11/06/19 14:01 Home Medications: Home Medications Acetaminophen [Tylenol] 650 mg PO Q6H PRN 11/06/19 [History Confirmed 11/06/19] Apixaban* [Eliquis*] 5 mg PO BID 11/06/19 [History Confirmed 11/06/19] PMH/Surg Hx/FS Hx/Imm Hx Endocrine/Hematology History: Reports: Hx Anticoagulant Therapy, Hx Thyroid Disease Denies: Hx Diabetes Cardiovascular History: Reports: Hx Deep Vein Thrombosis, Hx Hypercholesterolemia, Hx Hypertension - ON MEDICATION, Hx Peripheral Vascular Disease - HYx OF Denies: Hx Pacemaker/ICD Respiratory History: Reports: Hx Pulmonary Embolism - ON XARELTO, Hx Sleep Apnea - NOTED STUDY NOT DONE GI History: Reports: Hx Gastroesophageal Reflux Disease History: Reports: Other Problems/Disorders - BLADDER CANCER Musculoskeletal History: Reports: Hx Arthritis - OSTEO Sensory History: Reports: Hx Cataracts - BILATERAL, Hx Contacts or Glasses - GLASSES, Hx Hearing Aid - not wearing it Opthamlomology History: Reports: Hx Cataracts - BILATERAL, Hx Contacts or Glasses - GLASSES Psychiatric History: Reports: Hx Anxiety Denies: Hx Panic Disorder - Cancer History Cancer Type, Location and Year: BLADDER Hx Chemotherapy: Yes - Surgical History Surgical History: Yes Surgery Procedure, Year, and Place: 2011 BILATERAL ING. HERNIA REPAIRS RAPHINE, 2008 BLADDER CANCER RAPHINE, bilateral knee replacements. ESOPHAGUS STRETCHED [facility] Hx Anesthesia Reactions: No Infectious Disease History: No Infectious Disease History: Denies: Traveled Outside the [place] in Last 30 Days - Family History Known Family History: Negative: Diabetes Family History: negative for malignant hyperthermia, negative for reaction to anesthesia - Social History Alcohol Use: Daily Alcohol Amount: 3-4 BEERS/DAY Hx Substance Use: No Substance Use Type: Reports: None Hx Tobacco Use: No Smoking Status (MU): Former Smoker Type: Cigarettes Amount Used/How Often: 4 PPD FOR 30 YEARS Have You Smoked in the Last Year: No Review of Systems Negative: Fever, Chills Positive: Arthralgia - left great toe into foot Positive: Other - erythema and warmth in left great toe Positive: Paresthesia - lower left leg All Other Systems Reviewed And Are Negative: Yes Physical Exam - Summary Physical Exam Summary: Constitutional: Well-developed, Well-nourished, Alert. (-) Distressed Skin: Warm, Dry HENT: Normocephalic; Atraumatic Eyes: Conjunctiva normal Neck: Musculoskeletal ROM normal neck. (-) JVD, (-) Stridor, (-) Tracheal deviation Cardio: Rhythm regular, rate normal, Heart sounds normal; Intact distal pulses; Radial pulses are 2+ and symmetric. (-) Murmur Pulmonary/Chest wall: Effort normal. (-) Respiratory distress, (-) Wheezes, (-) Rales Abd: Soft, (-) tenderness, (-) Distension, (-) Guarding, (-) Rebound Musculoskeletal: Swelling, erythema, and warmth just proximal to the left great toe, Patient able to range toe but does have pain, No proximal swelling or tenderness, (-) Edema Lymph: (-) Cervical adenopathy Neuro: Alert, Oriented x3 Psych: Mood and affect Normal Triage Information Reviewed: Yes Vital Signs On Initial Exam: Initial Vitals Temp Pulse Resp BP Pulse Ox 97.8 F 51 19 179/144 99 11/06/19 13:56 11/06/19 13:56 11/06/19 13:56 11/06/19 13:56 11/06/19 13:56 Vital Signs Reviewed: Yes Procedures - Sedation Patient Received Moderate/Deep Sedation with Procedure: No Diagnostics - Vital Signs Vital Signs Temp Pulse Resp BP Pulse Ox 11/06/19 13:56 97.8 F 51 19 179/144 99 - Laboratory Lab Statement: Any lab studies that have been ordered have been reviewed, and results considered in the medical decision making process. - Radiology L Toe XR Radiology Interpretation Completed By: Radiologist Summary of Radiographic Findings: Impression: No evidence for fracture or other acute bony abnormality of the left great toe. ED physician has reviewed this report. - EKG 1416 Cardiac Rate: NL - 90 bpm EKG Rhythm: Sinus Rhythm Summary of EKG Findings: EKG at 1416 reveals normal sinus rhythm at 90 bpm. No STEMI. ED physician has reviewed and interpreted this EKG. Re-Evaluation - Re-Evaluation First Eval Re-Evaluation Time: 15:05 Comment: We discussed results and plan for discharge. Lower Extremity Course/Dx - Course Course Of Treatment: Patient is here with likely gout of his left great toe. Patient has had pain, swelling, erythema to his left great toe. Patient is able to range his toe with minimal pain. Patient has no systemic signs of infection. Patient has no proximal tenderness or swelling. Patient had an x- ray performed which showed no effusion or fracture. Patient was started on prednisone as he is on blood thinners and can't take NSAIDs. - Diagnoses Provider Diagnoses: Gout, Swelling of toe of left foot Discharge ED - Sign-Out/Discharge Documenting (check all that apply): Patient Departure - Patient will be discharged home. - Discharge Plan Condition: Stable Disposition: HOME Prescriptions: predniSONE TAB* [Deltasone 20 MG TAB*] 40 mg PO DAILY 4 Days #8 tab Patient Education Materials: Gout (ED) Referrals: Deja West MD [Primary Care Provider] - 3 Days Additional Instructions: Take your medicine IN THE MORNING as prescribed. Follow up with your primary care provider in 1-3 days. Return to the emergency department for any new or worsening symptoms such as increased pain and swelling in the toe or foot, inability to move your toe, or any other concerning symptoms. - Billing Disposition and Condition Condition: STABLE Disposition: Home - Attestation Statements Document Initiated by Debbie: Yes Documenting Scribe: Rahel Green Provider For Whom Debbie is Documenting (Include Credential): Dr. Db Barba MD Scribe Attestation: Rahel Warren scribed for Dr. Db Barba MD on 11/06/19 at 1530. Scribe Documentation Reviewed: Yes Provider Attestation: The documentation as recorded by the Rahel zamora accurately reflects the service I personally performed and the decisions made by me, Dr. Db Barba MD Status of Scribe Document: Viewed
[2019-11-06] MEDS ORDERED: predniSONE TAB* 20 MG PO ONE (14:15)
[2019-11-06 15:34] VITALS: BP 165/90
== END 2019-11-06 15:34 | disposition home or self-care (01) ==
LOC: ED 13:55
DX: M10.9 Gout, unspecified (principal); E03.9 Hypothyroidism, unspecified; E78.5 Hyperlipidemia, unspecified; E78.00 Pure hypercholesterolemia, unspecified; K21.9 Gastro-esophageal reflux disease without esophagitis; I10 Essential (primary) hypertension; I73.9 Peripheral vascular disease, unspecified; Z87.891 Personal history of nicotine dependence; Z96.653 Presence of artificial knee joint, bilateral; Z86.718 Personal history of other venous thrombosis and embolism; Z85.51 Personal history of malignant neoplasm of bladder; Z86.711 Personal history of pulmonary embolism; Z79.01 Long term (current) use of anticoagulants; Z88.0 Allergy status to penicillin
CPT/HCPCS: 93005; 99282; J7512